=== PATIENT | female | born 1980 | race American Indian/Alaskan Native ===

== ENCOUNTER 2018-05-21 13:48 | Emergency (ER) | payer OTHER ==
--- NOTE | 2018-05-21 15:49 | Emergency Department Report ---
- General Chief Complaint: Upper Respiratory Infection Stated Complaint: SORETHROAT,CONGESTION,HEADACHE Time Seen by Provider: 05/21/18 15:15 Source: patient Mode of arrival: Ambulatory Limitations: No Limitations - History of Present Illness Initial Comments: 38-year-old obese female since emerge department complaining of nasal congestion and been using excessive amounts of nasal sprays to come back issue improvement and now experiencing worsening sinus congestion with right-sided sinus pressure, so she was sore throat and ear pain. Has a continued cough with scant mucus pr oduction that is becoming more of an issue as well. No nausea, vomiting but has had some chills. MD Complaint: cough, sore throat, rhinorrhea, nasal congestion Severity: mild Quality: dull Improves With: nothing Worsens With: nothing Associated Symptoms: denies other symptoms, rhinorrhea, nasal congestion, sore throat, cough, nausea. denies: chills, myalgias, diaphoresis, vomiting, diarrhea, rash, confusion, right sweats, weight loss, other - Related Data Previous Rx's Medication Instructions Recorded Last Taken Type Naproxen [Naprosyn TAB] 500 mg PO BID #30 tablet 07/11/14 Unknown Rx traMADol [Ultram 50 MG tab] 50 mg PO Q6HR PRN #20 tablet 07/11/14 Unknown Rx Acetamin/Codeine 120-12Mg/5 ml 5 ml PO TID PRN #60 oz 08/13/14 Unknown Rx [Tylenol/Codeine 120-12 mg/5 ml] Albuterol Sulfate [Proventil HFA] 1 - 2 puff IH Q4H PRN #2 hfa.aer.ad 08/13/14 Unknown Rx Ferrous Sulfate [Feosol 325 MG tab] 325 mg PO TID #90 tablet 08/13/14 Unknown Rx amLODIPine [Norvasc] 5 mg PO DAILY #30 tab 08/13/14 Unknown Rx Azithromycin [Zithromax] 250 mg PO DAILY #2 tablet 03/04/18 Unknown Rx cephALEXin [Keflex] 500 mg PO Q8HR #21 cap 03/04/18 Unknown Rx guaiFENesin DM [Guaifenesin Dm 20 ml PO Q4HR PRN #240 ml 03/04/18 Unknown Rx Syrup] ALBUTEROL Inhaler (OR & NICU) 1 puff IH Q4-6H PRN #1 inha 05/21/18 Unknown Rx [ProAir HFA Inhaler] Amoxicillin/Potassium Clav 1 each PO BID #28 tablet 05/21/18 Unknown Rx [Augmentin 875-125 Tablet] guaiFENesin/CODEINE [Robitussin AC] 5 ml PO Q6H PRN #120 ml 05/21/18 Unknown Rx predniSONE [Deltasone] 20 mg PO QDAY #5 tab 05/21/18 Unknown Rx Allergies Allergy/AdvReac Type Severity Reaction Status Date / Time No Known Allergies Allergy Verified 08/12/14 21:12 ED Review of Systems ROS: Stated complaint: SORETHROAT,CONGESTION,HEADACHE Other details as noted in HPI Constitutional: denies: chills, fever Eyes: denies: eye pain, eye discharge, vision change ENT: congestion. denies: ear pain, throat pain Respiratory: cough Cardiovascular: denies: chest pain, palpitations Endocrine: no symptoms reported Gastrointestinal: denies: abdominal pain, nausea, diarrhea Genitourinary: denies: urgency, dysuria, discharge Musculoskeletal: denies: back pain, joint swelling, arthralgia Skin: denies: rash, lesions Neurological: denies: headache, weakness, paresthesias Psychiatric: denies: anxiety, depression Hematological/Lymphatic: denies: easy bleeding, easy bruising ED Past Medical Hx - Past Medical History Hx Hypertension: Yes Hx Congestive Heart Failure: No Hx Diabetes: No Hx Asthma: No Hx COPD: No Additional medical history: anemia- with transfusion - Surgical History Hx Cholecystectomy: Yes Additional Surgical History: x 2, tubal ligation - Social History Smoking Status: Never Smoker Substance Use Type: None - Medications Home Medications: Home Medications Medication Instructions Recorded Confirmed Last Taken Type Naproxen [Naprosyn TAB] 500 mg PO BID #30 tablet 07/11/14 Unknown Rx traMADol [Ultram 50 MG tab] 50 mg PO Q6HR PRN #20 tablet 07/11/14 Unknown Rx Acetamin/Codeine 120-12Mg/5 ml 5 ml PO TID PRN #60 oz 08/13/14 Unknown Rx [Tylenol/Codeine 120-12 mg/5 ml] Albuterol Sulfate [Proventil HFA] 1 - 2 puff IH Q4H PRN #2 hfa.aer.ad 08/13/14 Unknown Rx Ferrous Sulfate [Feosol 325 MG tab] 325 mg PO TID #90 tablet 08/13/14 Unknown Rx amLODIPine [Norvasc] 5 mg PO DAILY #30 tab 08/13/14 Unknown Rx Azithromycin [Zithromax] 250 mg PO DAILY #2 tablet 03/04/18 Unknown Rx cephALEXin [Keflex] 500 mg PO Q8HR #21 cap 03/04/18 Unknown Rx guaiFENesin DM [Guaifenesin Dm 20 ml PO Q4HR PRN #240 ml 03/04/18 Unknown Rx Syrup] ALBUTEROL Inhaler (OR & NICU) 1 puff IH Q4-6H PRN #1 inha 05/21/18 Unknown Rx [ProAir HFA Inhaler] Amoxicillin/Potassium Clav 1 each PO BID #28 tablet 05/21/18 Unknown Rx [Augmentin 875-125 Tablet] guaiFENesin/CODEINE [Robitussin AC] 5 ml PO Q6H PRN #120 ml 05/21/18 Unknown Rx predniSONE [Deltasone] 20 mg PO QDAY #5 tab 05/21/18 Unknown Rx ED Physical Exam - General Limitations: No Limitations General appearance: alert, in no apparent distress - Head Head exam: Present: atraumatic, normocephalic - Eye Eye exam: Present: normal appearance - ENT ENT exam: Present: mucous membranes moist, other (sinus pressure to the right maxillary and ethmoid and frontal sinus region. Bilateral significant nasal congestion. No discharge.) - Neck Neck exam: Present: normal inspection, full ROM, lymphadenopathy - Respiratory Respiratory exam: Present: normal lung sounds bilaterally, rhonchi. Absent: respiratory distress, wheezes, rales, chest wall tenderness, accessory muscle use, decreased breath sounds, prolonged expiratory - Cardiovascular Cardiovascular Exam: Present: regular rate, normal rhythm. Absent: systolic murmur, diastolic murmur, rubs, gallop - GI/Abdominal GI/Abdominal exam: Present: soft, normal bowel sounds. Absent: distended, hyperactive bowel sounds, hypoactive bowel sounds, organomegaly - Extremities Exam Extremities exam: Present: normal inspection, full ROM, normal capillary refill - Back Exam Back exam: Present: normal inspection, full ROM - Neurological Exam Neurological exam: Present: alert, oriented X3, CN II-XII intact, normal gait - Psychiatric Psychiatric exam: Present: normal affect, normal mood - Skin Skin exam: Present: warm, dry, intact, normal color. Absent: rash, diaphoretic, erythema, petechiae, pallor, abrasion ED Course Vital Signs 05/21/18 13:54 Temperature 98.2 F Pulse Rate 96 H Respiratory 18 Rate Blood Pressure 197/98 O2 Sat by Pulse 98 Oximetry Critical care attestation.: If time is entered above; I have spent that time in minutes in the direct care of this critically ill patient, excluding procedure time. ED Disposition Clinical Impression: Sinus congestion, Cough, URI (upper respiratory infection), Sinusitis Disposition: DC- TO HOME OR SELFCARE Is pt being admited?: No Does the pt Need Aspirin: No Condition: Stable Instructions: Sinusitis (ED), Acute Bacterial Rhinosinusitis (ED), Cold Symptoms (ED) Prescriptions: ALBUTEROL Inhaler (OR & NICU) [ProAir HFA Inhaler] 1 puff IH Q4-6H PRN #1 inha PRN Reason: Cough Amoxicillin/Potassium Clav [Augmentin 875-125 Tablet] 1 each PO BID #28 tablet guaiFENesin/CODEINE [Robitussin AC] 5 ml PO Q6H PRN #120 ml PRN Reason: Cough predniSONE [Deltasone] 20 mg PO QDAY #5 tab Referrals: PRIMARY CARE, [Primary Care Provider] - 3-5 Days [facility] [Provider Group] - 3-5 Days
== END 2018-05-21 16:16 | disposition home or self-care (01) ==
LOC: ED 13:48
CPT/HCPCS: 99282

== ENCOUNTER 2021-10-05 08:31 | Day surgery (SDC) | payer MEDICAID, OTHER ==
[2021-10-05] MEDS ORDERED: LACTATED RINGERS 1,000 ML ONE ×2 (09:35→12:45)
[2021-10-05] MEDS ORDERED: ONDANSETRON 4 MG/2 ML INJ IV PRN (10:50)
[2021-10-05] MEDS ORDERED: HYDROmorphone 1 MG/1 ML INJ IV PRN ×2 (10:50)
--- NOTE | 2021-10-05 10:50 | Anesthesia Day of Surgery ---
Anesthesia Day of Surgery - Day of Surgery Patient Examined: Yes Patient H&P Reviewed: Yes Patient is NPO: Yes
--- NOTE | 2021-10-05 10:52 | Anesthesia Consultation ---
Anesthesia Consult and Med Hx Date of service: 10/05/21 - Airway Anesthetic Teeth Evaluation: Chipped ROM Head & Neck: Adequate Mental/Hyoid Distance: Adequate Mallampati Class: Class I Intubation Access Assessment: Good - Pre-Operative Health Status ASA Pre-Surgery Classification: ASA3 Proposed Anesthetic Plan: General - Pulmonary Hx Smoking: No Hx Asthma: Yes (Has not used inhaler in over 1 year) COPD: No Hx Pneumonia: No Hx Sleep Apnea: No (Denies) - Cardiovascular System Hx Hypertension: Yes - Central Nervous System Hx Psychiatric Problems: Yes (Anxiety/Depression) - Gastrointestinal Hx Gastroesophageal Reflux Disease: No - Endocrine Hx End Stage Renal Disease: No Hx Non-Insulin Dependent Diabetes: No - Hematic Hx Anemia: Yes (7.0) - Other Systems Hx Alcohol Use: Yes (Occas) Hx Cancer: No Hx Obesity: Yes (BMI 45)
[2021-10-05] MEDS ORDERED: LACTATED RINGERS 1,000 ML IV SCH (11:00)
[2021-10-05] MEDS ORDERED: fentaNYL 100 MCG/2 ML INJ ONE (11:10)
[2021-10-05] MEDS ORDERED: LIDOCAINE MPF (2%) 20 MG/1 ML VIAL 5 ML ONE (11:10)
[2021-10-05] MEDS ORDERED: propofoL 200 MG/20 ML VIAL IV ONE (11:11)
--- NOTE | 2021-10-05 11:21 | Operative Report ---
Operative Report Operative Report: Preoperative diagnosis: Menorrhagia,dysfunctional uterine bleeding, incisional mass on Pfannenstiel incision Postoperative diagnosis: benign endometrial polyps with suspects lipoma at pfannensteil incision. Procedure hysteroscopy dilation and curettage with endometrial ablation, exploration of incisional mass with spinal needle Surgeon Dr. Joycelyn Victoria Assist none Anesthesia GETA Complications none IV fluids 1 L EBL less than 100 mL Urine output 100 mL clear Drains none Specimen: For endometrial sampling sent to pathology for frozen section: Initial read was negative for malignancy, atypia, hyperplasia Procedure: Under general anaesthetic in a dorsal lithotomy position, the patient was prep ped and draped in the usual sterile manner. Bimanual exam prior to prepping revealed a mobile, anteverted non-enlarged uterus. A weighted speculum was placed in the vagina and with the help of a right angle retractor the anterior lip of the cervix was grasped with a single toothed tinaculum and brought forward. Taking care not to enter deep into the uterus, a sound was passed inside to measure the length of the uterus and cervix. This legth was found to be __8___ cm. Next, a large Hegar dilator was inserted into the cervical os to measure the cervical length which was __3.5__ cm. This yielded an endometrial cavity length of _4.5__. A series of Hegar dilators were then inserted sequentially into the cervical os up to a size of 5 mm. The diagnostic hysteroscope was then introduced into the uterine cavity and the uterus was distended with normal saline fluid. The cavity was examined and found to be normal shape with polypoid endometrial tissue. Both ostea were visualized. The scope was removed that the cervix was further dilated to 8mm. Sharp endometrial curettage was performed and all endometrial sampling sent to pathology for frozen section. After the pathology was noted to be benign we proceeded with the ablation. The G-clusterre device was then opened and tested; the fan deployed easily. The instrument was set to the correct cavity length and introduced into the uterine cavity. The fan was slowly deployed with gentle movements to ensure a snug fit within the cavity. The cavity width read _4.5___. The measurements were imported and a cavity check was done. The trumpet was then slid down to the cervix and the device was activated. The total burn time was ___120__ seconds. The fan was retracted and device removed. The fan was examined and revealed charred tissue. The tenaculum was removed and the cervix examined for hemostasis which was achieved. Finally the weighted speculum was removed. Tension was turned to the abdomen. Using a spinal needle the incisional mass was probed in 2 places. There was no drainage or indication of infection or abscess, suspected lipoma versus adhesion. Patient did not want complete revision or excision of mass so the procedure was terminated. The patient tolerated the procedure well, was extubated and was brought to the recovery room in a stable condition. At the end of the procedure all sponges and instruments were counted and correct x2. The blood loss was minimal and there were no complications. Patient's family was notified of her condition at the completion of the procedure. Nathaly Victoria MD
[2021-10-05] MEDS ORDERED: SODIUM CHLORIDE 0.9% IRRIG SOLN 2000 ML IR ONE (12:37)
[2021-10-05] MEDS ORDERED: dexAMETHasone 20 MG/5 ML VIAL ONE (12:45)
[2021-10-05] MEDS ORDERED: ONDANSETRON 4 MG/2 ML INJ ONE (12:45)
[2021-10-05] MEDS ORDERED: KETOROLAC 30 MG/1 ML INJ ONE (12:45)
--- NOTE | 2021-10-05 15:21 | Post Anesthesia Evaluation ---
- Post Anesthesia Evaluation Patient Participated: Yes Airway Patent: Yes Stable Respiratory Function: Yes Nausea/Vomiting: No Temp > 96.8F: Yes Pain Manageable: Yes Adequeate Hydration: Yes Anesthesia Complications: No Block Receding Appropriately: Not Applicable Patient on Ventilator: No
[2021-10-05 16:28] VITALS: BP 156/80
== END 2021-10-05 14:25 | disposition home or self-care (01) ==
LOC: OR 08:31 → EDSTATUS 14:30
PROVIDERS: ATTEND Obstetrics & Gynecology
DX: N92.0 Excessive and frequent menstruation with regular cycle (principal); N93.8 Other specified abnormal uterine and vaginal bleeding; N84.0 Polyp of corpus uteri; D64.9 Anemia, unspecified; I10 Essential (primary) hypertension; E66.9 Obesity, unspecified; F32.9 Major depressive disorder, single episode, unspecified; F41.9 Anxiety disorder, unspecified; Z20.822 Contact with and (suspected) exposure to COVID-19; Z79.899 Other long term (current) drug therapy; Z87.01 Personal history of pneumonia (recurrent); Z87.440 Personal history of urinary (tract) infections; Z90.49 Acquired absence of other specified parts of digestive tract; Z68.41 Body mass index [BMI] 40.0-44.9, adult; Z98.51 Tubal ligation status; Z98.891 History of uterine scar from previous surgery; Z98.890 Other specified postprocedural states
CPT/HCPCS: 49999; 58563; 81025; 88305; 88331; J1100; J1170; J1885; J2405; J2704; J3010; J7120; U0003